=== PATIENT | male | born 1990 | race Caucasian/White ===

== ENCOUNTER 2018-10-06 12:05 | Emergency (ER) | payer MEDICAID ==
[~2018-10-06] VITALS: Ht 182.8 cm; Wt 116.1 kg
--- NOTE | ~2018-10-06 | EKG ---
[place], [place] ELECTROCARDIOGRAM REPORT NAME: CLARENCE YOST UNIT #: [id number] ROOM: DOCTOR: EPIPHANY DRAFT REPORT BIRTHDATE: [birth year] [facility] Test Date: 2018-10-06 Test Time: 13:22:05 Pat Name: CLARENCE YOST Department: ED Room: Gender: Top Closer: Moon José : 1990 Requested By: VIN BERMAN PA-C Order Number: [id number] Reading MD: Galilea José MD Measurements Intervals [place] Rate: 89 P: 16 MN: 178 QRS: 41 QRSD: 85 T: 24 QT: 356 QTc: 434 Interpretive Statements Sinus rhythm Electronically Signed On 10-08-2018 11:47:20 PDT by Galilea José MD CM:EKGRPT:ELECTROCARDIOGRAM REPORT [id number] VIN BERMAN PA-C EPIPHANY DRAFT REPORT VIN BERMAN PA-C
[~2018-10-06 12:05] MED LIST: GEODON40 MG PO
[2018-10-06] MEDS ORDERED: OXCARBAZEPINE600 MG PO (12:31)
[2018-10-06] MEDS ORDERED: LEVOTHYROXINE50 MCG PO (12:32)
[2018-10-06 13:35] LABS: BASO % 0.4 % (0.0-1.0); EOS # 0.1 10*3/uL (0.0-0.4); EOS % 1.3 % (1.0-4.0); HEMATOCRIT 43.9 % (42.0-52.0); HEMOGLOBIN 14.7 g/dl (14.0-18.0); LYMPH # 1.9 10*3/uL (1.3-4.4); LYMPH % 25.3 % (27.0-41.0); MEAN CELL VOLUME 89.6 fl (80.0-94.0); MEAN CORPUSCULAR HGB CONC 33.5 g/dl (33.0-37.0); MEAN PLATELET VOLUME 10.1 fl (9.6-12.3); MONO # 0.4 10*3/uL (0.1-1.0); MONO % 5.1 % (3.0-9.0); NEUT # 5.2 10*3/uL (2.3-7.9); NEUT % 67.6 % (47.0-73.0); PLATELET COUNT AUTOMATED 244 10*3/uL (130-400); WHITE BLOOD COUNT 7.6 10*3/uL (4.8-10.8)
[2018-10-06 13:56] LABS: ALBUMIN 4.2 gm/dl (3.1-4.5); ALKALINE PHOSPHATASE 77 U/L (45-117); BUN 14 mg/dl (7-24); CHLORIDE 103 mmol/L (98-107); CREATININE 0.88 mg/dL (0.70-1.30); POTASSIUM 3.8 mmol/L (3.5-5.1); SGOT/AST 27 IU/L (3-35); SGPT/ALT 93 U/L (12-78); SODIUM 137 mmol/L (136-145); TOTAL PROTEIN 8.3 gm/dL (6.4-8.2)
[2018-10-06 13:59] LABS: ETHYL ALCOHOL < 3.0 mg/dl (<3)
[2018-10-06 14:06] LABS: ACETAMINOPHEN (TYLENOL) < 2.0 ug/ml (10-30)
[2018-10-06 16:41] LABS: BILIRUBIN NEGATIVE (NEGATIVE); BLOOD NEGATIVE (NEGATIVE); CLARITY CLEAR (CLEAR); COLOR YELLOW (YELLOW); GLUCOSE NEGATIVE (NEGATIVE); KETONE NEGATIVE (NEGATIVE); LEUKO ESTERASE NEGATIVE (NEGATIVE); NITRITE NEGATIVE (NEGATIVE); PH 8.5 (5.0-9.0); SPECIFIC GRAVITY 1.015 (1.005-1.030); UROBILINOGEN 0.2 E.U./dl (0.2-1.0)
[2018-10-06 16:49] LABS: BACTERIA 1+; EPITHELIAL CELLS 0-2; MUCOUS TRACE; RBC 0-2 rbc/hpf (0-2); WBC 0-2 wbc/hpf (0-5)
[2018-10-06 16:51] LABS: URINE AMPHETAMINES < 1000 (1000ng/ml); URINE BARBITURATES < 200 (200ng/ml); URINE BENZODIAZEPINES < 200 (200ng/ml); URINE CANNABINOIDS (THC) < 50 (50ng/ml); URINE COCAINE < 300 (300ng/ml); URINE METHADONE < 300 (300ng/ml); URINE OPIATES < 300 (300ng/ml)
[2018-10-06 17:02] LABS: URINE PHENCYCLIDINE < 25 (25ng/ml)
== END 2018-10-09 11:41 | disposition home or self-care (01) ==
LOC: ED 12:05
PROVIDERS: Physician Assistant
DX: F23 Brief psychotic disorder (principal); Z79.899 Other long term (current) drug therapy